=== PATIENT | male | born 1990 | race Caucasian/White ===

== ENCOUNTER 2022-04-07 06:30 | Outpatient (CLI) | payer MEDICAID | END 2022-04-07 23:59 | disposition home or self-care (01) | LOC: RAD 06:30 | PROVIDERS: ATTEND Psychiatry & Neurology Neurology | DX: R40.20 Unspecified coma (principal) | CPT/HCPCS: 95819 ==

== ENCOUNTER 2022-09-25 20:23 | Emergency (ER) | payer MEDICAID ==
[~2022-09-25] VITALS: Ht 177.8 cm; Wt 106.8 kg
[2022-09-25 21:13] VITALS: BP 129/73
== END 2022-09-26 07:30 | disposition left against medical advice (07) ==
LOC: ER 20:23
DX: R10.30 Lower abdominal pain, unspecified (principal); Z53.21 Procedure and treatment not carried out due to patient leaving prior to being seen by health care provider